=== PATIENT | female | born 1965 | race Caucasian/White ===

== ENCOUNTER → 2016-09-09 | Outpatient (CLI) | payer OTHER ==
[~2016-09-09] MED LIST: REGADENOSON 0.4 MG/5 ML SYRINGE ONE
== END | disposition home or self-care (01) ==
LOC: CFH 06:42
PROVIDERS: ATTEND Internal Medicine Nephrology
DX: Z12.31 Encounter for screening mammogram for malignant neoplasm of breast (principal); Z01.818 Encounter for other preprocedural examination; R94.31 Abnormal electrocardiogram [ECG] [EKG]; I34.0 Nonrheumatic mitral (valve) insufficiency; I12.0 Hypertensive chronic kidney disease with stage 5 chronic kidney disease or end stage renal disease; N18.6 End stage renal disease
CPT/HCPCS: 71020; 78452; 93005; 93017; 93306; A9502; G0202; J2785

== ENCOUNTER → 2018-03-28 | Outpatient (CLI) | payer OTHER | END | disposition home or self-care (01) | LOC: CFH 10:48 | PROVIDERS: ATTEND Family Medicine | DX: N64.89 Other specified disorders of breast (principal); R92.8 Other abnormal and inconclusive findings on diagnostic imaging of breast | CPT/HCPCS: 77065; G0279 ==

== ENCOUNTER 2018-04-12 11:33 | Emergency (ER) | payer OTHER ==
[~2018-04-12] VITALS: Ht 157.5 cm; Wt 75.7 kg
[2018-04-12 11:42] VITALS: BP 201/109
[2018-04-12 12:10] LABS: BASOPHILS # (AUTO) 0.09 x10^3/uL (0-0.1); BASOPHILS % (AUTO) 1 % (0-1); EOSINOPHILS # (AUTO) 0.25 x10^3/uL (0-0.4); EOSINOPHILS % (AUTO) 3 % (1-7); LYMPHOCYTES # (AUTO) 1.21 x10^3/uL (1-3.4); LYMPHOCYTES % (AUTO) 13 % (22-44); MD NO; MEAN CORPUSCULAR HEMOGLOBIN 28.1 pg (27.0-34.8); MEAN CORPUSCULAR VOLUME 85.3 fL (80-100); MEAN PLATELET VOLUME 8.6 fL (7.4-10.4); MONOCYTES # (AUTO) 0.65 x10^3/uL (0.2-0.8); MONOCYTES % (AUTO) 7 % (2-9); NEUTROPHILS # (AUTO) 7.07 x10^3/uL (1.8-6.8); NEUTROPHILS % (AUTO) 76 % (42-75); PLATELET COUNT 337 x10^3/uL (130-400); RED BLOOD COUNT 4.99 x10^6/uL (3.82-5.3); RED CELL DISTRIBUTION WIDTH 14.7 % (9.6-15.2)
[2018-04-12 12:17] LABS: ALBUMIN 3.9 g/dL (3.4-5.0); ANION GAP 6 mmol/L (5-15); CALCIUM 8.9 mg/dL (8.5-10.1); CHLORIDE 110 mmol/L (98-107); CREATININE 4.33 mg/dL (0.55-1.02)
--- NOTE | 2018-04-12 12:44 | NUR ---
PT REPORTS TO ED FOR ELEVATED BP AT HOME, REFERRED BY NEPHRO. DENIES ANY SYMPOTOMS (BURT, CHEST PAIN, ETC.). PT RESTING ON GURNEY. CALL LIGHT IN REACH, FAMILY AT BEDSIDE. AWAITING FURTHER ORDERS.
--- NOTE | 2018-04-12 13:12 | NUR ---
Patient/Caregiver given discharge instructions and they have confirmed that they understand the instructions. Patient ambulatory with steady gait.
== END 2018-04-12 13:13 | disposition home or self-care (01) ==
LOC: ED 12:42
DX: I10 Essential (primary) hypertension (principal); E11.9 Type 2 diabetes mellitus without complications; F41.9 Anxiety disorder, unspecified
CPT/HCPCS: 36415; 80048; 82040; 85025; 93005; 99284

== ENCOUNTER 2018-08-18 14:37 | Day surgery (SDC) | payer OTHER ==
[~2018-08-18] VITALS: Ht 157.5 cm; Wt 73.2 kg
[2018-08-18 20:22] VITALS: BP 198/96
== END 2018-08-18 21:00 | disposition home or self-care (01) ==
LOC: OR 14:37 → 4NOR 18:30 → OR 21:00
PROVIDERS: ATTEND Surgery
DX: E11.22 Type 2 diabetes mellitus with diabetic chronic kidney disease (principal); I12.0 Hypertensive chronic kidney disease with stage 5 chronic kidney disease or end stage renal disease; N18.6 End stage renal disease; K66.0 Peritoneal adhesions (postprocedural) (postinfection); D63.1 Anemia in chronic kidney disease; E78.5 Hyperlipidemia, unspecified; E03.9 Hypothyroidism, unspecified; G43.909 Migraine, unspecified, not intractable, without status migrainosus; K21.9 Gastro-esophageal reflux disease without esophagitis; Z79.4 Long term (current) use of insulin; Z79.890 Hormone replacement therapy; Z79.899 Other long term (current) drug therapy; Z88.0 Allergy status to penicillin; Z90.49 Acquired absence of other specified parts of digestive tract; Z90.710 Acquired absence of both cervix and uterus; Z82.49 Family history of ischemic heart disease and other diseases of the circulatory system; Z82.5 Family history of asthma and other chronic lower respiratory diseases; Z80.8 Family history of malignant neoplasm of other organs or systems
CPT/HCPCS: 36415; 49320; 80053; 82962; 85025; 85610; 85730; 93005; J0171; J0330; J0360; J0690; J2405; J2704; J3010; J7030; G0378; C1750

== ENCOUNTER 2018-08-29 05:35 | Day surgery (SDC) | payer OTHER ==
[~2018-08-29] VITALS: Ht 157.5 cm; Wt 71.5 kg
[~2018-08-29 05:35] MED LIST changes: +CALC0.25 PO; +FAMO20TA37 PO; +INSU100V11 SQ; +INSU300I SQ; +LEVO112T4 PO; +LORA1TAB PO; +NOVOLOG SQ; -REGADENOSON 0.4 MG/5 ML SYRINGE ONE; +SIMV20TA3 PO; +SODI650T PO; +VERA240T10 PO; +[UNRECOGNIZED DRUG - REMARK] PO
[2018-08-29] MEDS ORDERED: SODIUM CHLORIDE 0.9% 1,000 ML IV SCH (06:46)
[2018-08-29] MEDS ORDERED: PROTAMINE SULFATE 10 MG/ML, 5ML ONE (06:50)
[2018-08-29] MEDS ORDERED: THROMBIN 20,000 UNIT VIAL TP ONE (06:50)
[2018-08-29] MEDS ORDERED: HEPARIN 1,000 UNITS/ML, 10ML ONE (06:50)
[2018-08-29] MEDS ORDERED: BUPIVACAINE/EPI 0.5% 1:200K ONE (06:50)
[2018-08-29 06:52] VITALS: BP 190/100
[2018-08-29] MEDS ORDERED: MIDAZOLAM 1 MG/ML, 2ML ONE (07:18)
[2018-08-29] MEDS ORDERED: FENTANYL PF 250 MCG/5ML ONE (07:18)
[2018-08-29] MEDS ORDERED: SCOPOLAMINE PATCH, 1.5MG PATCH.TD72 TD ONE ×2 (07:26→07:30)
[2018-08-29] MEDS ORDERED: OXYcodone 5 MG/5 ML ORAL.SOL UDC PO PRN (08:00)
[2018-08-29] MEDS ORDERED: ONDANSETRON ODT 8 MG PO PRN (08:00)
[2018-08-29] MEDS ORDERED: ONDANSETRON 2MG/ML, 2ML IV PRN (08:00)
[2018-08-29] MEDS ORDERED: LABETALOL 5MG/ML, 20ML IV PRN (08:00)
[2018-08-29] MEDS ORDERED: PROMETHAZINE 12.5 MG SUPP PR PRN (08:00)
[2018-08-29] MEDS ORDERED: hydrALAzine 20 MG/ML, 1ML IV PRN (08:00)
[2018-08-29] MEDS ORDERED: FENTANYL PF 100 MCG/2ML IV PRN (08:00)
[2018-08-29] MEDS ORDERED: HYDROmorphone 1 MG/ML, 1ML INJ IV PRN (08:00)
[2018-08-29] MEDS ORDERED: GLYCOPYRROLATE 0.2MG/1ML, 5ML ONE (15:58)
[2018-08-29] MEDS ORDERED: SUCCINYLCHOLINE 20 MG/ML, 10ML ONE (15:58)
[2018-08-29] MEDS ORDERED: CEFAZOLIN 1,000 MG ONE (15:58)
[2018-08-29] MEDS ORDERED: ROCURONIUM 10MG/ML,5ML ONE (15:58)
[2018-08-29] MEDS ORDERED: NEOSTIGMINE 1 MG/ML, 10ML ONE (15:58)
[2018-08-29] MEDS ORDERED: PROPOFOL 10 MG/ML, 20ML ONE (15:58)
== END 2018-08-29 11:05 | disposition home or self-care (01) ==
LOC: OUT 05:35
PROVIDERS: ATTEND Surgery
DX: E11.22 Type 2 diabetes mellitus with diabetic chronic kidney disease (principal); I12.0 Hypertensive chronic kidney disease with stage 5 chronic kidney disease or end stage renal disease; N18.6 End stage renal disease; K66.0 Peritoneal adhesions (postprocedural) (postinfection); K85.10 Biliary acute pancreatitis without necrosis or infection; I87.1 Compression of vein; E78.5 Hyperlipidemia, unspecified; E03.9 Hypothyroidism, unspecified; G43.909 Migraine, unspecified, not intractable, without status migrainosus; K21.9 Gastro-esophageal reflux disease without esophagitis; Z79.4 Long term (current) use of insulin; Z79.890 Hormone replacement therapy; Z79.899 Other long term (current) drug therapy; Z88.8 Allergy status to other drugs, medicaments and biological substances; Z90.710 Acquired absence of both cervix and uterus; Z90.49 Acquired absence of other specified parts of digestive tract; Z80.8 Family history of malignant neoplasm of other organs or systems; Z82.49 Family history of ischemic heart disease and other diseases of the circulatory system
CPT/HCPCS: 36821; 82962; J0330; J0690; J1644; J2250; J2704; J2710; J2720; J3010; J7030

== ENCOUNTER 2018-09-29 12:50 | Day surgery (SDC) | payer OTHER ==
[~2018-09-29] VITALS: Ht 157.5 cm; Wt 71.2 kg
[2018-09-29 13:51] VITALS: BP 170/95
== END 2018-09-29 18:40 | disposition home or self-care (01) ==
LOC: OUT 12:50
PROVIDERS: ATTEND Surgery
DX: E11.22 Type 2 diabetes mellitus with diabetic chronic kidney disease (principal); I12.0 Hypertensive chronic kidney disease with stage 5 chronic kidney disease or end stage renal disease; N18.5 Chronic kidney disease, stage 5; E03.9 Hypothyroidism, unspecified; E78.5 Hyperlipidemia, unspecified; G43.909 Migraine, unspecified, not intractable, without status migrainosus; D63.1 Anemia in chronic kidney disease; K21.9 Gastro-esophageal reflux disease without esophagitis; Z79.4 Long term (current) use of insulin; Z79.890 Hormone replacement therapy; Z79.899 Other long term (current) drug therapy; Z88.8 Allergy status to other drugs, medicaments and biological substances; Z82.49 Family history of ischemic heart disease and other diseases of the circulatory system; Z80.8 Family history of malignant neoplasm of other organs or systems; Z82.5 Family history of asthma and other chronic lower respiratory diseases
CPT/HCPCS: 36415; 36821; 80053; 85025; J0330; J0690; J1644; J2250; J2405; J2704; J3010; J7030; J2720; J2440

== ENCOUNTER 2019-03-29 11:03 | Day surgery (SDC) | payer OTHER ==
[~2019-03-29] VITALS: Ht 157.5 cm; Wt 67.3 kg
[~2019-03-29 11:03] MED LIST changes: +SIMV20TA19 PO; -SIMV20TA3 PO; +SODIUM CHLORIDE 0.9% 1,000 ML IV SCH
[2019-03-29 12:15] VITALS: BP 192/92
[2019-03-29] MEDS ORDERED: INSU100I9 SQ-INSULIN (12:21)
[2019-03-29] MEDS ORDERED: LEVO100T5 PO (12:21)
[2019-03-29] MEDS ORDERED: FERR324T5 PO (12:21)
[2019-03-29] MEDS ORDERED: SIMV10TA PO (12:21)
[2019-03-29] MEDS ORDERED: PLEASE ENTER HEIGHT AND WEIGHT MC SCH (12:30)
[2019-03-29] MEDS ORDERED: PANT40TA5 PO (12:47)
[2019-03-29] MEDS ORDERED: SODI650T PO (12:47)
[2019-03-29] MEDS ORDERED: B VITAMIN PO (12:47)
[2019-03-29] MEDS ORDERED: CHOL2000 PO (12:47)
[2019-03-29] MEDS ORDERED: FENTANYL PF 100 MCG/2ML ONE (13:28)
[2019-03-29] MEDS ORDERED: MIDAZOLAM 1 MG/ML, 5ML ONE (13:28)
[2019-03-29] MEDS ORDERED: LIDOCAINE 2%, 20ML ONE (13:28)
== END 2019-03-29 16:24 | disposition home or self-care (01) ==
LOC: CACL 11:03
PROVIDERS: ATTEND Internal Medicine Cardiovascular Disease
DX: Z01.810 Encounter for preprocedural cardiovascular examination (principal); E11.22 Type 2 diabetes mellitus with diabetic chronic kidney disease; I12.9 Hypertensive chronic kidney disease with stage 1 through stage 4 chronic kidney disease, or unspecified chronic kidney disease; N18.9 Chronic kidney disease, unspecified; E78.5 Hyperlipidemia, unspecified; E03.9 Hypothyroidism, unspecified; F12.10 Cannabis abuse, uncomplicated; E66.3 Overweight; Z68.27 Body mass index [BMI] 27.0-27.9, adult; Z79.4 Long term (current) use of insulin; Z79.890 Hormone replacement therapy; Z79.899 Other long term (current) drug therapy; Z88.1 Allergy status to other antibiotic agents; Z90.49 Acquired absence of other specified parts of digestive tract; Z90.710 Acquired absence of both cervix and uterus; Z99.2 Dependence on renal dialysis; Z82.5 Family history of asthma and other chronic lower respiratory diseases; Z82.49 Family history of ischemic heart disease and other diseases of the circulatory system
CPT/HCPCS: 93458; 99156; C1760; C1769; C1894; J2250; J3010; Q9967